=== PATIENT | female | born 1990 | race Two or more races ===

== ENCOUNTER 2016-11-18 18:17 | Emergency (ER) | payer OTHER, MEDICAID ==
--- NOTE | 2016-11-18 21:00 | US ---
OB COMP <14 WKS, OB TRANSVAGINAL HISTORY: Pelvic pain. The patient is , expected to be at 5 weeks 5 days gestational age. COMPARISONS: None. FINDINGS: Transabdominal and transvaginal ultrasonography demonstrates an intrauterine fluid collection. There is the suggestion of an indwelling yolk sac though no pole is observed. The fluid collection mean size is measured at 0.92 cm, equivalent to a gestational age of 5 weeks 0 days. No adjacent fluid collections are visualized. The maternal right ovary measures 2.5 x 1.9 x 3.4 cm. The left ovary measures 2.8 x 1.5 x 1.5 cm. There is a low echogenicity focus within the right ovary measuring 1.8 cm in size with no associated vascularity observed. No significant free fluid is identified. IMPRESSION: 1. Findings most consistent with an intrauterine gestation with measurements equivalent to a gestational age of 5 weeks 0 days producing an EDC of 07/21/2017. Currently, a yolk sac only is visualized with no pole observed. 2. A 1.8 cm nonvascular hypoechoic focus within the maternal right ovary which may reflect a complicated or hemorrhagic corpus luteal cyst. 3. No significant pelvic free fluid visualized.
[2016-11-18 21:36] LABS: PH,URINE 6.5 (5.0-8.0); SPECIFIC GRAVITY 1.015 (1.001-1.030); URINE BILIRUBIN NEGATIVE (NEGATIVE); URINE BLOOD NEGATIVE (NEGATIVE); URINE GLUCOSE (UA) NEGATIVE (NEGATIVE); URINE LEUKOCYTE ESTERASE NEGATIVE (NEGATIVE); URINE NITRITE NEGATIVE (NEGATIVE); URINE PROTEIN NEGATIVE (NEGATIVE); URINE UROBILINOGEN NORMAL (0-1 mg/dl)
[2016-11-18 21:37] LABS: URINE APPEARANCE CLEAR; URINE COLOR YELLOW
== END 2016-11-18 21:59 | disposition home or self-care (01) ==
LOC: ED 18:17
DX: O34.81 Maternal care for other abnormalities of pelvic organs, first trimester (principal); N83.11 Corpus luteum cyst of right ovary; Z3A.01 Less than 8 weeks gestation of pregnancy

== ENCOUNTER 2016-11-25 16:19 | Emergency (ER) | payer OTHER, MEDICAID ==
[2016-11-25] MEDS ORDERED: PROMETHAZINE HCL 25 MG TABLET ONE (17:29)
== END 2016-11-25 18:34 | disposition home or self-care (01) ==
LOC: ED 16:19
DX: R11.2 Nausea with vomiting, unspecified (principal); Z33.1 Pregnant state, incidental; F41.9 Anxiety disorder, unspecified; F32.9 Major depressive disorder, single episode, unspecified
CPT/HCPCS: 99283 ×2; A9270